=== PATIENT | male | born 1960 | race Caucasian/White ===

== ENCOUNTER 2018-08-31 07:03 | Day surgery (SDC) | payer BC ==
[~2018-08-31] VITALS: Ht 157.5 cm; Wt 68.9 kg
[2018-08-31] VITALS (12 sets, daily range): BP systolic 100–129; BP diastolic 68–84; PULSE 84–92; RESP 13–22; Ht 157.5 cm; Wt 68.9 kg
[2018-08-31] MEDS ORDERED: OMEP40CA6 PO (07:46)
[2018-08-31] MEDS ORDERED: GLYB5TAB3 PO (07:49)
[2018-08-31] MEDS ORDERED: LOSA100T15 PO (07:49)
[2018-08-31] MEDS ORDERED: METF500T24 PO (07:49)
[2018-08-31] MEDS ORDERED: SOD CHLORIDE 0.9% 1,000 ML IV SCH (08:30)
--- NOTE | 2018-08-31 08:56 | HPN ---
Date/Time of Note Date/Time of Note DATE: 08/31/18 TIME: 08:55 Interval H&P Admission Note Pt. seen H&P reviewed: No system changes CITLALI HAWKINS DPM Aug 31, 2018 08:56
--- NOTE | 2018-08-31 09:21 | PREAC ---
Date/Time of Note Date/Time of Note DATE: 08/31/18 TIME: 09:06 Anesthesia Eval and Record Evaluation Time Pre-Procedure Interview DATE: 08/31/18 TIME: 09:06 Age 58 Sex male NPO: 8 hrs Preoperative diagnosis right hallux valgus Planned procedure right bunionectom, linnea osteotomy Past Medical History Past Medical History: Includes Cardio: HTN, Dyslipidemia Endo: Diabetes Hepatic: Alcohol abuse (2 beers per day, last drank 2 days ago) Surgery & Anesthesia Issues No known issue Meds Anticoagulation: No Beta Delia within 24 hr: No Reason Beta Delia not given: Pt. not on B-Delia Reported Medications Losartan Potassium* (Losartan Potassium*) 100 Mg Tablet, 100 MG PO DAILY, TAB 08/31/18 Metformin Hcl* (Metformin Hcl*) 500 Mg Tablet, 500 MG PO WITH BREAKFAST DINNE, #60 TAB 08/31/18 Glyburide* (Glyburide*) 5 Mg Tablet, 5 MG PO BID, #60 TAB 08/31/18 Omeprazole* (Omeprazole*) 40 Mg Capsule.dr, 40 MG PO DAILY, #30 CAP 08/31/18 Current Medications Sodium Chloride 1,000 ml @ 25 mls/hr Q24H IV ; Start 08/31/18 at 08:30 Meds reviewed: Yes Allergies Coded Allergies: No Known Allergy (Unverified , 08/31/18) Allergies Reviewed: Yes Labs/Studies Labs Reviewed: Reviewed by anesthesiologist test: N/A Studies: ECG, CXR Pre-procedure Exam Last vitals Vital Signs Date Temp Pulse Resp B/P (MAP) Pulse Ox O2 O2 Flow FiO2 Time Delivery Rate 08/31/18 96.8 84 16 129/84 97 Room Air 08:41 (99) Airway: Adequate mouth opening, Adequate thyromental dist Mallampati: Mallampati II Teeth: Normal Lung: Normal Heart: Normal ASA Physical Status ASA physical status: 2 Emergency: None Planned Anesthetic General/MAC: ETT Planned Pain Management Parenteral pain med, Other neuraxial med Pre-operative Attestations Prior to commencing anesthesia and surgery, the patient was re-evaluated, there was verification of: *The patient's identity *The results of appropriate recent lab work and preoperative vital signs *The above evaluation not changing prior to induction *Anesthetic plan, risk benefits, alternative and complications discussed with patient/family; questions answered; patient/family understands, accepts and wishes to proceed. ANDIE ALEXANDER Aug 31, 2018 09:17
[2018-08-31] MEDS ORDERED: PROPOFOL 20 ML ONE (09:36)
[2018-08-31] MEDS ORDERED: MIDAZOLAM 1 MG/ML 2 ML INJ ONE (09:36)
[2018-08-31] MEDS ORDERED: FENTAnyl 50 MCG/ML VIAL ONE ×2 (09:36→10:40)
[2018-08-31] MEDS ORDERED: LIDOCAINE 2% (SDV) 5 ML INJ ONE (09:36)
[2018-08-31] MEDS ORDERED: CEFAZOLIN 1 GM INJ ONE (09:37)
[2018-08-31] MEDS ORDERED: SUCCINYLCHOLINE CHLORIDE 100 MG/5 ML SYG IV ONE (09:39)
[2018-08-31] MEDS ORDERED: POVIDONE IODINE 10% 28.4 GM OINT ONE (09:47)
[2018-08-31] MEDS ORDERED: LIDOCAINE 1% (MPF) 30 ML INJ ONE (09:47)
[2018-08-31] MEDS ORDERED: BUPIVACAINE 0.5% (SDV) 30 ML INJ ONE (09:47)
[2018-08-31] MEDS ORDERED: DESFLURANE 15 MIN ONE (10:00)
[2018-08-31] MEDS ORDERED: ONDANSETRON 4 MG INJ ONE (10:13)
[2018-08-31] MEDS ORDERED: DEXAMETHASONE 4 MG/ML 5 ML INJ ONE (10:13)
[2018-08-31] MEDS ORDERED: FAMOTIDINE 20 MG INJ ONE (10:13)
[2018-08-31] MEDS ORDERED: METOCLOPRAMIDE 10 MG INJ ONE (10:13)
[2018-08-31] MEDS ORDERED: PHENYLephrine (100 MCG/ML) 10ML SYG ONE (10:27)
[2018-08-31] MEDS ORDERED: LABETALOL HCL 20MG INJ IV PRN (10:30)
[2018-08-31] MEDS ORDERED: OXYCODONE/ACETAMINOPHEN (5/325) TAB PO PRN ×2 (10:30)
[2018-08-31] MEDS ORDERED: MEPERIDINE 25 MG INJ IV PRN (10:30)
[2018-08-31] MEDS ORDERED: ONDANSETRON 4 MG INJ IV PRN (10:30)
[2018-08-31] MEDS ORDERED: HYDROmorphONE 1 MG/5 ML IV SYRINGE IV PRN ×3 (10:30)
[2018-08-31] MEDS ORDERED: hydrALAzine 20 MG INJ IV PRN (10:30)
[2018-08-31] MEDS ORDERED: KETOROLAC 30 MG INJ ONE (11:33)
--- NOTE | 2018-08-31 11:50 | SIPON ---
Date/Time of Note Date/Time of Note DATE: 08/31/18 TIME: 11:45 Operative Report Preoperative Diagnosis Diagnosis hallux abductovalgus with bunion deformity right foot hammertoe second right foot Postoperative Diagnosis Same Operation/Procedure Performed Osteotomy and bunionectomy with fixation first metatarsal right Aden osteotomy with fixation proximal phalanx hallux right hammertoe correction second right application of active shield Surgeon see signature line occupational therapist's assistant None Anesthesia: general Estimated blood loss: minimal Transfusion Required none Specimen Specimen bone Grafts/Implants Grafts a active shield a OsteoMed headless screw 2.4 x 18 a 12 x 12 right staple and 8 x 8 right staple none Complications none CITLALI HAWKINS DPM Aug 31, 2018 11:50
--- NOTE | 2018-08-31 13:03 | PAC ---
Date/Time of Note Date/Time of Note DATE: 08/31/18 TIME: 13:03 Post-Anesthesia Notes Post-Anesthesia Note Last documented vital signs Vital Signs Date Temp Pulse Resp B/P (MAP) Pulse Ox O2 O2 Flow FiO2 Time Delivery Rate 08/31/18 84 20 115/70 97 Room Air 12:30 (85) 08/31/18 98.3 11:51 08/31/18 8.0 11:50 Activity: WNL Respiratory function: WNL Cardiovascular function: WNL Mental status: Baseline Pain reasonably controlled: Yes Hydration appropriate: Yes Nausea/Vomiting absent: Yes ANDIE ALEXANDER Aug 31, 2018 13:03
--- NOTE | 2018-08-31 14:03 | PREOPHP ---
DATE OF ADMISSION: 08/31/2018 HISTORY OF PRESENT ILLNESS: The patient is being admitted to the hospital for elective foot surgery, palliative treatment unsuccessful. The patient has been explained surgery, complications and altern atives and elected to have elective foot surgery. The patient has pain with bunion of right foot and 2nd digit which is crossing over. ALLERGIES: THE PATIENT DENIES ANY. PAST MEDICAL HISTORY: The patient is a diabetic with high blood pressure and cholesterol. He takes medicine for all three. REVIEW OF SYSTEMS: Negative heart, lung, liver, kidney and thyroid. His diabetes is under control. SOCIAL HISTORY: He does not smoke and just occasional alcohol. PHYSICAL EXAMINATION: EXTREMITIES: See any other pertinent history and upper extremity physical exam by Dr. Tanner Glaser. Lo wer extremity physical exam shows the DP and PT of 3.5 plus. NEUROLOGIC: Active. DERMATOLOGICAL: Negative. MUSCULOSKELETAL: Shows hallux abducto valgus with bunion of right foot and hammertoe of 2nd right fo ot. FINAL DIAGNOSES: 1. Hallux with abducto valgus with bunion formation, right foot. 2. Hammertoe, 2nd right foot. Dictated By: CITLALI WATSON/ZAFAR Conf#: [id number] DID#: [id number]
--- NOTE | 2018-08-31 16:58 | OPR ---
DATE OF OPERATION: 08/31/2018 PREOPERATIVE DIAGNOSES: 1. Hallux abductovalgus with bunion formation, right foot. 2. Hammertoe, 2nd right foot. POSTOPERATIVE DIAGNOSES: 1. Hallux abductovalgus with bunion formation, right foot. 2. Hammertoe, 2nd right foot. PROCEDURES: Osteotomy and bunionectomy with fixation, 1st metatarsal, right foot; Aden osteotomy wit h fixation proximal phalanx, right foot; hammertoe correction, 2nd right foot and application of Acti shield. SURGEON: Citlali Ramey DPM DESCRIPTION OF PROCEDURE: The patient was brought to the surgical suite, placed in the supine positi on. The patient is under general anesthesia and the patient had sterile draped prepped, a tourniquet at the thigh and findings were consistent with the pre and postoperative diagnoses. The first incis ion was a dorsomedial longitudinal incision over the 1st metatarsophalangeal joint. Using sharp and blunt dissection, the incision was carried deep. The Bovie was used as necessary. A longitudinal in cision was made in the capsule and the head of 1st metatarsal was freed of its attachment dorsally an d medially. Also, the base of the lateral aspect of the proximal phalanx was also freed and remodele d. The head of 1st metatarsal after being freed, a horizontal V-osteotomy was made with the apex goi ng distal from the base proximal centered at the head of the 1st metatarsal. The capital fragment wa s moved laterally and impacted at the base. The overhang on the base was excised. A K-wire was plac ed through the osteotomy site. A screw was made. OsteoMed headless screw, 2.4 x 18 mm, was placed a cross the osteotomy site and the K-wire was removed. The osteotomy site though was not solid yet and so, 12 x 12 Willett staple was used to then stabilize the osteotomy site. The area was then cleansed and the rasped smooth. Now, attention was turned to the proximal phalanx. The incision was lengthe kp and the proximal phalanx shaft was freed of its attachment dorsally and medially and Aden osteoto my was made with the apex going laterally and the base medially. The medial side of the base was 2.5 mm at the widest point. Then 8 x 8 staple was used to close and hold the osteotomy clean. The area was all cleansed. Actishield was then placed over the 1st metatarsal and subcutaneous tissue was co aptated using 3-0 Vicryl and the skin was coaptated using 5-0 Nylon. Incision on the 2nd digit was m kenroy using sharp and blunt dissection. The incision was carried deep. The head of proximal phalanx w as freed of its attachment and resected and the area was cleansed and subcutaneously coaptated using 3-0 Dexon and the skin was coapted using 5-0 Nylon. A snap tenotomy was done through a stab incision over the 2nd metatarsophalangeal joint and that area was then coaptated using 5-0 Nylon. All incisi ons were injected with 0.5% Marcaine to prolong anesthesia and had dressing with 1/2-inch Steri-Strip s, Betadine ointment, 4 x 4's impregnated with Betadine solution and Anthony with an outer layer of Cob an made into a semi-compressive dressing. The patient tolerated surgery well and was returned to rec overy room in satisfactory condition with minimum blood loss and no complications. Dictated By: CITLALI WATSON/ZAFAR Conf#: [id number] DID#: [id number]
== END 2018-08-31 13:20 | disposition home or self-care (01) ==
LOC: SDS 07:03
PROVIDERS: ATTEND Podiatrist
DX: M20.11 Hallux valgus (acquired), right foot (principal); M21.611 Bunion of right foot; M20.41 Other hammer toe(s) (acquired), right foot; I10 Essential (primary) hypertension; E11.9 Type 2 diabetes mellitus without complications; E03.9 Hypothyroidism, unspecified
CPT/HCPCS: 28285; 28299; 82962; 88304; 88311; J0690; J1100; J1885; J2250; J2370; J2405; J2765; J3010